=== PATIENT | female | born 1995 | race Caucasian/White ===

== ENCOUNTER 2017-04-29 10:23 | Emergency (ER) | payer OTHER ==
[2017-04-29 10:28] VITALS: BP 128/78
--- NOTE | 2017-04-29 10:58 | ER Document Report ---
HPI - HPI Patient complains to provider of: ej recheck Onset: Last week Onset/Duration: Better Pain Level: 2 Context: 20 you [facility] sent to ER to have right buttocks abscess recheck-repack from her sick call. Incised on monday and repacked daily there. No fever. Much smaller per pt. Associated Symptoms: None Exacerbated by: Denies Relieved by: Denies Similar symptoms previously: No Recently seen / treated by doctor: Yes - ROS ROS below otherwise negative: Yes Systems Reviewed and Negative: Yes All other systems reviewed and negative - DERM Skin Color: Normal Past Medical History - General Information source: Patient - Social History Smoking Status: Never Smoker Frequency of alcohol use: None Drug Abuse: None Occupation: [employer] [place] with: Friend Family History: Reviewed & Not Pertinent - Medical History Medical History: Negative Surgical Hx: Negative Vertical Provider Document - CONSTITUTIONAL Agree With Documented VS: Yes Exam Limitations: No Limitations General Appearance: No Apparent Distress - INFECTION CONTROL TRAVEL OUTSIDE OF THE [place] IN LAST 30 DAYS: No - RESPIRATORY O2 Sat by Pulse Oximetry: 99 - MUSCULOSKELETAL/EXTREMETIES Musculoskeletal/Extremeties: MAEW - NEURO Level of Consciousness: Awake, Alert, Appropriate - DERM Integumentary: Abscess - 5mm incision with packing right buttucks 2 inches from anus, indurated non tender 2 cm, packing removed, minimal pink, no pus, edge of 4 x 4 replaced into hole. healing well and appropriately Course - Vital Signs Vital signs: Temp Pulse Resp BP Pulse Ox 97.9 F 81 16 128/78 H 99 04/29/17 10:27 04/29/17 10:27 04/29/17 10:27 04/29/17 10:27 04/29/17 10:27 Discharge - Discharge Clinical Impression: left buttocks abscess recheck Condition: Good Disposition: HOME, SELF-CARE Instructions: Abscess ([facility]) Additional Instructions: keep the dressing on until you are seen on monday at sick call if it does get soiled, you can apply dry dressing with tape given to you continue the antibiotic to er any concerns this weekend Please complete the patient satisfaction survey if you get one, and return it.. If you do not receive a survey, then you can go to the [facility] website, [email or web address] and place your comments about your very good care. Thank you very much. It was a pleasure being your medical provider today.
== END 2017-04-29 11:22 | disposition home or self-care (01) ==
LOC: ER 10:23
DX: L02.31 Cutaneous abscess of buttock (principal)
CPT/HCPCS: 99282